=== PATIENT | male | born 1995 | race Caucasian/White ===

== ENCOUNTER 2019-12-09 11:10 | Emergency (ER) | payer BC, SELFPAY ==
--- NOTE | ~2019-12-09 | XR_ITS ---
EXAMINATION: XR hand LT min 3V EXAM DATE: 12/09/2019 12:04 INDICATION: Initial encounter following injury, with pain of the left hand, attention third MP joint . TECHNIQUE: Left hand frontal, lateral and oblique projections obtained and reviewed. There is no costa or study for comparison. FINDINGS: Left metacarpal bones are unremarkable. There are no acute fractures or dislocations ident ified. There is no subcutaneous gas. The soft tissue is unremarkable. There are no radiopaque for eign bodies. IMPRESSION: No acute osseous findings. Reviewed, dictated and finalized at location A. IMPRESSION: No acute osseous findings.
[2019-12-09 11:29] VITALS: BP 139/68; PULSE 80; RESP 16; TEMP 36.6; O2SAT 98
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
== END 2019-12-09 12:45 | disposition home or self-care (01) ==
PROVIDERS: Emergency Provider Nurse Practitioner Family
DX: S63.92XA Sprain of unspecified part of left wrist and hand, initial encounter (principal); W23.0XXA Caught, crushed, jammed, or pinched between moving objects, initial encounter
CPT/HCPCS: 73130; 99213; G0463

== ENCOUNTER 2021-03-23 12:23 | Emergency (ER) | payer BC, SELFPAY ==
--- NOTE | ~2021-03-23 | XR_ITS ---
EXAMINATION: XR ribs LT 2V w CXR 2V INDICATION: Left-sided chest pain TECHNIQUE: PA and lateral views of the chest and 3 views of the left ribs were obtained. COMPARISON: None. FINDINGS: There is an acute, minimally displaced fracture at the anterolateral aspect of the left six th rib. The lungs are free of acute opacities. There is no pleural effusion or pneumothorax. The card iomediastinal silhouette is normal. IMPRESSION: 1. Minimally displaced left sixth rib fracture. 2. No acute cardiopulmonary abnormality. Reviewed, dictated and finalized at location A.
[2021-03-23 13:20] VITALS: BP 147/89; PULSE 63; RESP 16; TEMP 36.6; O2SAT 100
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
[2021-03-23] MEDS: KETOROLAC (*BKC) 60 MG/2 ML VIAL IM (15:21)
[2021-03-23 15:35] VITALS: BP 137/84; PULSE 75; RESP 16; TEMP 36.6; O2SAT 99
== END 2021-03-23 15:39 | disposition home or self-care (01) ==
PROVIDERS: Emergency Provider Emergency Medicine
DX: S22.32XA Fracture of one rib, left side, initial encounter for closed fracture (principal); W22.8XXA Striking against or struck by other objects, initial encounter
CPT/HCPCS: 71046; 71100; 96372; 99283; J1885

== ENCOUNTER 2022-12-27 16:56 | Emergency (ER) | payer OTHER, SELFPAY ==
--- NOTE | ~2022-12-27 | XR_ITS ---
EXAMINATION: XR finger 2nd LT min 2V DATE: 12/27/2022 17:22 INDICATION: Left hand second digit injury. TECHNIQUE: 3 views of left hand second digit were obtained. COMPARISON: Left hand radiographs 12/09/2019 FINDINGS: There is an avulsion fracture of dorsal base of second distal phalanx with 1 mm distraction . Joint spaces are normal. IMPRESSION: 1. Avulsion fracture of dorsal base of second distal phalanx. Reviewed, dictated and finalized at location A.
[2022-12-27 17:08] VITALS: BP 145/80; PULSE 110; RESP 14; TEMP 37.7; O2SAT 100
[2022-12-27 17:14] VITALS: BP 145/80; PULSE 110; RESP 14; TEMP 37.7; O2SAT 100
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
== END 2022-12-27 17:50 | disposition home or self-care (01) ==
PROVIDERS: Emergency Provider Nurse Practitioner; PCP Physician Assistant
DX: S62.631A Displaced fracture of distal phalanx of left index finger, initial encounter for closed fracture (principal); W22.8XXA Striking against or struck by other objects, initial encounter
CPT/HCPCS: 29130; 73140; 99214; G0463